=== PATIENT | female | born 1940 | race African-American/Black ===

== ENCOUNTER 2018-05-01 03:23 | Emergency (ER) | payer OTHER ==
[~2018-05-01] VITALS: Ht 157.5 cm; Wt 59.0 kg
[2018-05-01] MEDS ORDERED: PREDNISONE 20MG TABLET PO STA (03:51)
[2018-05-01 04:28] VITALS: BP 163/83
== END 2018-05-01 05:58 | disposition home or self-care (01) ==
LOC: ER 05:19
DX: J44.1 Chronic obstructive pulmonary disease with (acute) exacerbation (principal); I10 Essential (primary) hypertension; I48.91 Unspecified atrial fibrillation
CPT/HCPCS: 99283; J7512